=== PATIENT | male | born 1995 | race Caucasian/White ===

== ENCOUNTER 2022-01-10 09:40 | Emergency (ER) | payer MEDICAID, OTHER ==
[~2022-01-10] VITALS: Ht 170.2 cm; Wt 100.0 kg
[2022-01-10 09:46] VITALS: BP 149/73
[2022-01-10] MEDS ORDERED: OFLO5DRO4 LEFT EAR (12:09)
[2022-01-10] MEDS ORDERED: AMOX1TAB16 MT ×2 (12:09)
[2022-01-10] MEDS ORDERED: DOXY100C5 MT (13:29)
== END 2022-01-10 12:34 | disposition home or self-care (01) ==
LOC: ER 09:40
DX: H66.92 Otitis media, unspecified, left ear (principal); H60.502 Unspecified acute noninfective otitis externa, left ear; Z88.0 Allergy status to penicillin
CPT/HCPCS: 99281; 99283

== ENCOUNTER 2022-08-15 14:31 | Emergency (ER) | payer MEDICAID ==
[~2022-08-15] VITALS: Ht 170.2 cm; Wt 100.0 kg
[~2022-08-15 14:31] MED LIST: DOXY100C5 MT; OFLO5DRO4 LEFT EAR
[2022-08-15 14:34] VITALS: BP 160/98
[2022-08-15] MEDS ORDERED: AZITHROMYCIN 500 MG TABLET PO ONE (19:30)
[2022-08-15] MEDS ORDERED: ACETAMINOPHEN 325MG TABLET PO ONE (19:30)
[2022-08-15] MEDS ORDERED: ACET-2708 MT (19:32)
[2022-08-15] MEDS ORDERED: AZIT500T8 MT (19:32)
== END 2022-08-15 20:19 | disposition home or self-care (01) ==
LOC: ER 14:31
DX: H66.91 Otitis media, unspecified, right ear (principal); R03.0 Elevated blood-pressure reading, without diagnosis of hypertension
CPT/HCPCS: 99283

== ENCOUNTER 2023-02-09 12:17 | Emergency (ER) | payer MEDICAID ==
[~2023-02-09] VITALS: Ht 170.2 cm; Wt 91.0 kg
[~2023-02-09 12:17] MED LIST changes: +ACET-2708 MT; +AZIT500T8 MT
[2023-02-09 12:38] VITALS: BP 126/74; PULSE 112; TEMP 99.4; O2SAT 96
[2023-02-09] MEDS ORDERED: OFLO5DRO4 EACH EAR (13:14)
== END 2023-02-09 15:55 | disposition home or self-care (01) ==
LOC: ER 12:21
DX: H60.93 Unspecified otitis externa, bilateral (principal); J45.909 Unspecified asthma, uncomplicated
CPT/HCPCS: 99283